=== PATIENT | male | born 1975 | race Caucasian/White ===

== ENCOUNTER 2016-07-10 20:38 | Emergency (ER) | payer SELFPAY ==
[2016-07-10 21:02] VITALS: BP 183/120
--- NOTE | 2016-07-10 21:09 | ER Document Report ---
ED Medical Screen (RME) - General Stated Complaint: MOUTH PAIN Mode of Arrival: Ambulatory Information source: Patient Notes: Patient presents emergency department with complaints of dental pain. Denies breaking a tooth, reports it just started hurting. Denies other sx such as fever /n/v/d. He reports he did place orajel and it did help with his pain. I have greeted and performed a rapid initial assessment of this patient. A comprehensive ED assessment and evaluation of the patient, analysis of test results and completion of the medical decision making process will be conducted by additional ED providers. TRAVEL OUTSIDE OF THE [place] IN LAST 30 DAYS: No - Related Data Allergies/Adverse Reactions: haloperidol [From Haldol] Adverse Reaction (Verified 01/21/16 00:27) adv rxn w/diphenhydramine promethazine [From Phenergan] Adverse Reaction (Verified 01/21/16 00:27) adv rxn w/diphenhydramine Past Medical History - Past Medical History Cardiac Medical History: Reports: Hx Hypertension Denies: Hx Congestive Heart Failure, Hx DVT, Hx Heart Attack, Hx Pulmonary Embolism Pulmonary Medical History: Reports: Hx Sleep Apnea - Symptoms of Possible obstructive sleep apnea, although no formal testing. Denies: Hx Asthma, Hx COPD Neurological Medical History: Denies: Hx Seizures Endocrine Medical History: Denies: Hx Diabetes Mellitus Type 1, Hx Diabetes Mellitus Type 2, Hx Hyperthyroidism, Hx Hypothyroidism GI Medical History: Reports: Hx Diverticulitis, Hx Gastroesophageal Reflux Disease. Denies: Hx Cirrhosis, Hx Hepatitis Musculoskeltal Medical History: Denies Hx Arthritis Skin Medical History: Reports Hx Eczema Psychiatric Medical History: Reports: Hx Depression Infectious Medical History: Denies: Hx Hepatitis Physical Exam - Vital signs Vitals: Temp Pulse Resp BP Pulse Ox 97.6 F 67 18 183/120 H 99 07/10/16 21:01 07/10/16 21:01 07/10/16 21:01 07/10/16 21:01 07/10/16 21:01 Course - Vital Signs Vital signs: Temp Pulse Resp BP Pulse Ox 97.6 F 67 18 183/120 H 99 07/10/16 21:01 07/10/16 21:01 07/10/16 21:01 07/10/16 21:01 07/10/16 21:01
== END 2016-07-10 22:45 | disposition left against medical advice (07) ==
LOC: ER 20:38
DX: K08.89 Other specified disorders of teeth and supporting structures (principal); I10 Essential (primary) hypertension; Z98.890 Other specified postprocedural states
CPT/HCPCS: 99281

== ENCOUNTER 2018-08-14 22:05 | Emergency (ER) | payer SELFPAY ==
--- NOTE | 2018-08-15 00:56 | ER Document Report ---
HPI - HPI Patient complains to provider of: Needs medication refill Time Seen by Provider: 08/15/18 00:41 Onset: Yesterday Onset/Duration: Constant Quality of pain: No pain Severity: None Pain Level: 0 Context: Patient is a 43-year-old male comes emergency room requesting a refill of his blood pressure medications. Patient states he sees Dr. Blount at [facility] here in town and he called in to get his medications refilled however doctor will not refill them unless he has a physical examination patient states he is unable to for an examination. 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 Patient requesting that we refill carvedilol 25 mg twice daily lisinopril 20 hydrochlorthiazide 25 and amlodipine 10. Patient denies any other medical problems although he does state he might have a history of COPD but he does not believe so. He also states that he smokes a pack of cigarettes a day. Associated Symptoms: None Exacerbated by: Denies Relieved by: Denies Similar symptoms previously: No Recently seen / treated by doctor: No - ROS ROS below otherwise negative: Yes Systems Reviewed and Negative: Yes All other systems reviewed and negative - EENT EENT: DENIES: Sore Throat, Ear Pain, Nasal Drainage-Clear, Nasal Drainage- Purulent, Congestion, Eye problems - RESPIRATORY Respiratory: DENIES: Trouble Breathing, Coughing - GASTROINTESTINAL Gastrointestinal: DENIES: Abdominal Pain, Nausea, Patient vomiting, Diarrhea, Constipation, Black / Bloody Stools - URINARY Urinary: DENIES: Dysuria, Urgency, Frequency - REPRODUCTIVE Reproductive: DENIES: : - MUSCULOSKELETAL Musculoskeletal: DENIES: Extremity pain, Back Pain, Neck Pain, Swelling - DERM Skin Color: Normal, Arthur Skin Problems: None Past Medical History - General Information source: Patient - Social History Smoking Status: Current Every Day Smoker Cigarette use (# per day): Yes - 1 pack a day Chew tobacco use (# tins/day): No Smoking Education Provided: No Frequency of alcohol use: None Drug Abuse: None Lives with: Family Family History: None, Reviewed & Not Pertinent - Past Medical History Cardiac Medical History: Reports: Hx Hypertension Denies: Hx Congestive Heart Failure, Hx DVT, Hx Heart Attack, Hx Pulmonary Embolism Pulmonary Medical History: Reports: Hx Sleep Apnea - Symptoms of Possible obstructive sleep apnea, although no formal testing. Denies: Hx Asthma, Hx COPD Neurological Medical History: Denies: Hx Seizures Endocrine Medical History: Denies: Hx Diabetes Mellitus Type 1, Hx Diabetes Mellitus Type 2, Hx Hyperthyroidism, Hx Hypothyroidism Renal/ Medical History: Denies: Hx Peritoneal Dialysis GI Medical History: Reports: Hx Diverticulitis, Hx Gastroesophageal Reflux Disease. Denies: Hx Cirrhosis, Hx Hepatitis Musculoskeletal Medical History: Denies Hx Arthritis Skin Medical History: Reports Hx Eczema Psychiatric Medical History: Reports: Hx Depression Infectious Medical History: Denies: Hx Hepatitis Vertical Provider Document - CONSTITUTIONAL Agree With Documented VS: Yes Exam Limitations: No Limitations General Appearance: WD/WN Notes: PHYSICAL EXAMINATION: GENERAL: Well-appearing, well-nourished and in no acute distress. HEAD: Atraumatic, normocephalic. EYES: Pupils equal round and reactive to light, extraocular movements intact, sclera anicteric, conjunctiva are normal. ENT: Nares patent, oropharynx clear without exudates. Moist mucous membranes. NECK: Normal range of motion, supple without lymphadenopathy LUNGS: Breath sounds clear to auscultation bilaterally and equal. No wheezes rales or rhonchi. HEART: Regular rate and rhythm without murmurs NEUROLOGICAL: Normal speech, normal gait. Normal sensory, motor exams PSYCH: Normal mood, normal affect. SKIN: Warm, Dry, normal turgor, no rashes or lesions noted. - INFECTION CONTROL TRAVEL OUTSIDE OF THE [place] IN LAST 30 DAYS: No - NECK Neck: Normal Inspection - RESPIRATORY Respiratory: Breath Sounds Normal - CARDIOVASCULAR Cardiovascular: Regular Rate - NEURO Level of Consciousness: Awake, Alert, Appropriate Motor/Sensory: No Motor Deficit Course - Re-evaluation Re-evalutation: 08/15/18 00:55 Discussed with patient that the reason we cannot fill more than a months worth is because we are in emergency room. I have talked to him about his 1 pack a day cigarettes which would pay for his office visit to his doctor if he just had one day a week that he would not get a pack of cigarettes. If he slowed down to half pack a day to have a massive amount of savings. At this point I am feeling him a one-month supply and informed him this difficult for us to do out to ER more than that. - Vital Signs Vital signs: Temp Pulse Resp BP Pulse Ox 97.8 F 64 16 141/100 H 97 08/14/18 22:31 08/14/18 22:31 08/14/18 22:31 08/14/18 22:31 08/14/18 22:31 Discharge - Discharge Clinical Impression: Medication refill, Continuous tobacco abuse Condition: Good Disposition: HOME, SELF-CARE Additional Instructions: Emergency room is a place where we handle medication refills a month at a time only because it is the emergency room if you have to come to the emergency room to get one. Highly suggest that you establish with the [facility] another 6 months out but if you started with them a while back you would have been already involved with them. Highly suggest that you establish with them or consider cutting back on smoking so that you can go to a local med first as you are ready to do. We are not judging at all because we will do something that we probably should not however you got to think ahead in order to maintain medical following especially having history of hypertension which is something it must be controlled. Should you have any concerns or problems we are always open in the emergency room to help you. Prescriptions: Amlodipine Besylate [Norvasc 10 mg Tablet] 10 mg PO DAILY #30 tablet Carvedilol 25 mg PO BID #60 tablet Lisinopril/Hydrochlorothiazide [Lisinopril-Hctz 20-25 mg Tab] 1 each PO DAILY #30 tablet Forms: Smoking Cessation Education, Elevated Blood Pressure
[2018-08-15 01:41] VITALS: BP 156/107
== END 2018-08-15 01:42 | disposition home or self-care (01) ==
LOC: ER 22:05
DX: Z76.0 Encounter for issue of repeat prescription (principal); I10 Essential (primary) hypertension; F17.210 Nicotine dependence, cigarettes, uncomplicated
CPT/HCPCS: 99281

== ENCOUNTER 2019-01-31 23:26 | Emergency (ER) | payer SELFPAY | END 2019-01-31 23:50 | disposition left against medical advice (07) | LOC: ER 23:26 | DX: Z53.21 Procedure and treatment not carried out due to patient leaving prior to being seen by health care provider (principal); I10 Essential (primary) hypertension ==